=== PATIENT | female | born 1955 | race Caucasian/White ===

== ENCOUNTER → 2017-03-15 | Outpatient (CLI) | payer OTHER ==
--- NOTE | 2017-03-15 15:25 | RADIOLOGY REPORT (SQ) ---
EXAM DESCRIPTION: CAROTID DOPPLER COMPLETED DATE/TIME: 03/15/2017 1:47 pm REASON FOR STUDY: PARTIAL RETINAL ARTERY OCCLUSION LEFT EYE R01.1 CARDIAC MURMUR, UNSPECIFIED H34.2 12 PARTIAL RETINAL ARTERY OCCLUSION, LEFT EYE COMPARISON: None. TECHNIQUE: Grayscale ultrasound, Doppler velocity and spectra, and color Doppler images acquired of the extra-cranial carotid and vertebral arteries. Images stored on PACS. LIMITATIONS: None. FINDINGS: RIGHT CAROTID CCA Velocities: Within normal limits. ICA Velocities Peak systolic 0.68 m/s. End diastolic 0.17 m/s. Proximal ICA/CCA peak systolic ratio 1.3. Spectra normal. No significant plaque. LEFT CAROTID CCA Velocities: Within normal limits. ICA Velocities Peak systolic 0.26 m/s. End diastolic 0.12 m/s. Proximal ICA/CCA peak systolic ratio 0.5. Spectra normal. No significant plaque. VERTEBRAL ARTERIES: Antegrade flow. Normal waveforms. SUBCLAVIAN ARTERIES: Not evaluated a OTHER: No other significant finding. IMPRESSION: NO HEMODYNAMICALLY SIGNIFICANT STENOSIS. COMMENT: Quality ID #[id number]: Velocity criteria are extrapolated from the diameter data as defined by t he Society of Radiologists in Ultrasound Consensus Conference. Radiology 2003: 229; 340-346. TECHNICAL DOCUMENTATION: JOB ID: [id number] [employer]- All Rights Reserved
--- NOTE | 2017-03-16 11:38 | XCELERA REPORT ---
[address] [address] Transthoracic Echocardiogram Report Name: JENA NAJERA Age: 61 yrs Gender: Female : 1955 Patient Status: Outpatient Patient Location: Study Date: 03/15/2017 10:59 AM Height: 67 in Weight: 200 lb BSA: 2.0 m2 Procedure: A complete two-dimensional transthoracic echocardiogram was performed (2D, M-mode, spectral and color flow Doppler). The study was technically difficult with many images being suboptimal in quality. Reason For Study: MURMUR Ordering Physician: ELIZABETH MARCUM Performed By: Caprice Osborne Interpretation Summary The left ventricular ejection fraction is normal. Doppler measurements suggest normal left ventricular diastolic function There is normal left ventricular wall thickness. The left ventricle is grossly normal size. No regional wall motion abnormalities noted. The right ventricular systolic function is normal. The right atrium is normal in size The left atrial size is normal. There is a mild amount of mitral regurgitation There is no mitral valve stenosis. There is a mild amount of aortic regurgitation There is no aortic valve stenosis There is a trace or physiologic amount of tricuspid regurgitation Tricuspid regurgitation jet envelope not well defined to measure RV systolic pressure accurately. The aortic root is not well visualized but is probably normal size. The inferior vena cava appeared normal and decreased > 50% with respiration (RAP 5-10 mmHg) There is no pericardial effusion. MMode/2D Measurements \T\ Calculations RVDd: 2.5 cm LVIDd: 5.2 cm FS: 37.3 % Ao root diam: 2.9 cm IVSd: 0.66 cm LVIDs: 3.3 cm EDV(Teich): 129.8 ml LVPWd: 0.76 cmESV(Teich): 42.9 ml Ao root area: 6.5 cm2 EF(Teich): 66.9 % LVOT diam: 1.9 cm LVOT area: 3.0 cm2 Time Measurements MM R-R int: 0.35 sec MM HR: 173.2 BPM Doppler Measurements \T\ Calculations MV E max paty: MV dec slope: Ao V2 max: AI max paty: 89.8 cm/sec 346.1 cm/sec2 222.1 cm/sec 439.6 cm/sec MV A max paty: MV dec time: Ao max PG: AI max P.8 cm/sec 0.26 sec 19.7 mmHg 77.3 mmHg MV E/A: 0.88 Ao V2 mean: AI dec slope: 142.4 cm/sec 273.2 cm/sec2 Ao mean PG: AI P1/2t: 9.5 mmHg 471.2 msec Ao V2 VTI: 48.8 cm DENIS(I,D): 2.5 cm2 DENIS(V,D): 2.7 cm2 LV V1 max PG: SV(LVOT): 123.9 ml PA V2 max: PI end-d paty: 16.2 mmHg 115.1 cm/sec 116.9 cm/sec LV V1 mean PG: PA max P.8 mmHg 5.3 mmHg LV V1 max: 201.1 cm/sec LV V1 mean: 112.4 cm/sec LV V1 VTI: 41.5 cm Left Ventricle The left ventricle is grossly normal size. There is normal left ventricular wall thickness. The left ventricular ejection fraction is normal. Doppler measurements suggest normal left ventricular diastolic function. No regional wall motion abnormalities noted. Right Ventricle The right ventricle is grossly normal size. There is normal right ventricular wall thickness. The right ventricular systolic function is normal. Atria The right atrium is normal in size. The left atrial size is normal. Interarterial septum not well visualized and not well dopplered. Cannot comment on ASD/PFO presence. Mitral Valve The mitral valve is grossly normal. There is no mitral valve stenosis. There is a mild amount of mitral regurgitation. Aortic Valve The aortic valve is grossly normal. There is no aortic valve stenosis. There is a mild amount of aortic regurgitation. Tricuspid Valve The tricuspid valve is not well visualized, but is grossly normal. There is no tricuspid stenosis. There is a trace or physiologic amount of tricuspid regurgitation. Tricuspid regurgitation jet envelope not well defined to measure RV systolic pressure accurately. Pulmonic Valve The pulmonic valve is not well visualized. Great Vessels The aortic root is not well visualized but is probably normal size. The inferior vena cava appeared normal and decreased > 50% with respiration (RAP 5-10 mmHg). Effusions There is no pericardial effusion. : ELIZABETH MARCUM > Romana Rouse
== END ==
LOC: SP 10:46
PROVIDERS: ATTEND Physician Assistant
DX: H34.212 Partial retinal artery occlusion, left eye (principal); R01.1 Cardiac murmur, unspecified
CPT/HCPCS: 93306; 93880